=== PATIENT | female | born 1970 | race Hispanic/Latino ===

== ENCOUNTER 2021-05-15 06:16 | Day surgery (SDC) | payer BC ==
[2021-05-11 08:41] VITALS: BP 109/65
[2021-05-11 10:01] LABS: BASOPHILS % (AUTO) 0.7 % (0.0-5.0); EOSINOPHILS % (AUTO) 1.1 % (0.0-8.0); HEMATOCRIT 40.1 % (36-48); LYMPHOCYTES % (AUTO) 35.2 % (21.0-51.0); MEAN CORPUSCULAR HEMOGLOBIN 29.8 pg (27.0-33.0); MEAN CORPUSCULAR HGB CONC 33.4 g/dL (32.0-36.0); MEAN CORPUSCULAR VOLUME 89.3 fL (79-99); MONOCYTES % (AUTO) 7.7 % (3.0-13.0); NEUTROPHILS % (AUTO) 54.8 % (40.0-77.0); PLATELET COUNT (AUTO) 244 K/uL (130-400); RED BLOOD CELL COUNT(AUTO) 4.49 MIL/uL (4.00-5.50); RED CELL DISTRIBUTION WIDTH 13.1 % (11.0-15.5); WHITE BLOOD COUNT (AUTO) 5.6 K/uL (4.8-10.8)
[2021-05-11 10:10] LABS: CREATININE 0.7 mg/dL (0.5-1.5); POTASSIUM 4.5 mmol/L (3.5-5.1)
[~2021-05-15] VITALS: Ht 154.9 cm; Wt 69.0 kg
[2021-05-15] VITALS (14 sets, daily range): BP systolic 99–110; BP diastolic 56–68
[2021-05-15] MEDS: CEFAZOLIN SODIUM 1 GM VIAL IVP SCH ×2 (06:00→08:17)
[~2021-05-15 06:16] MED LIST: AMOX-429 PO; ROSU10TA28 PO
[2021-05-15] MEDS ORDERED: LIDOCAINE PF 100MG/5ML (2%) SYRINGE 5ML ONE (07:51)
[2021-05-15] MEDS ORDERED: PROPOFOL 10 MG/ML 20ML VIAL IV ONE (07:51)
[2021-05-15] MEDS ORDERED: FENTANYL CITRATE PF 50 MCG/1 ML 2ML VIAL ONE (07:51)
[2021-05-15] MEDS ORDERED: BUPIVACAINE/PF 0.25% 30ML VIAL IJ ONE (08:23)
[2021-05-15] MEDS ORDERED: ONDANSETRON 4MG INJ ONE (08:49)
[2021-05-15] MEDS ORDERED: KETOROLAC 30MG VIAL (30MG/ML) ONE (08:50)
[2021-05-15] MEDS ORDERED: ACET1TAB25 PO (08:59)
[2021-05-15] MEDS ORDERED: CEPH500B PO (08:59)
[2021-05-15] MEDS ORDERED: NAPR-1192 PO (08:59)
== END 2021-05-15 10:15 | disposition home or self-care (01) ==
LOC: DAH 06:16
PROVIDERS: ATTEND Orthopaedic Surgery
DX: G56.01 Carpal tunnel syndrome, right upper limb (principal); Z20.822 Contact with and (suspected) exposure to COVID-19; K21.9 Gastro-esophageal reflux disease without esophagitis; E78.5 Hyperlipidemia, unspecified; Z90.710 Acquired absence of both cervix and uterus; Z79.899 Other long term (current) drug therapy
CPT/HCPCS: 36415; 64721; 80048; 85025; 87635; A4215 ×2; A4221; A4222; A4223; A4649; A4663; A4930; A5120; A6223; C9803; J0690; J1885; J2001; J2405; J2704; J3010; J3490

== ENCOUNTER 2021-05-31 06:23 | Day surgery (SDC) | payer BC ==
[2021-05-26 11:51] LABS: BASOPHILS % (AUTO) 0.4 % (0.0-5.0); EOSINOPHILS % (AUTO) 1.6 % (0.0-8.0); HEMATOCRIT 39.8 % (36-48); LYMPHOCYTES % (AUTO) 37.1 % (21.0-51.0); MEAN CORPUSCULAR HEMOGLOBIN 29.7 pg (27.0-33.0); MEAN CORPUSCULAR HGB CONC 33.4 g/dL (32.0-36.0); MEAN CORPUSCULAR VOLUME 88.8 fL (79-99); MONOCYTES % (AUTO) 8.9 % (3.0-13.0); NEUTROPHILS % (AUTO) 51.8 % (40.0-77.0); PLATELET COUNT (AUTO) 235 K/uL (130-400); RED BLOOD CELL COUNT(AUTO) 4.48 MIL/uL (4.00-5.50); RED CELL DISTRIBUTION WIDTH 12.8 % (11.0-15.5); WHITE BLOOD COUNT (AUTO) 5.5 K/uL (4.8-10.8)
[2021-05-26 12:04] LABS: CREATININE 0.6 mg/dL (0.5-1.5); POTASSIUM 3.8 mmol/L (3.5-5.1)
[2021-05-30 13:55] VITALS: BP 114/61
[2021-05-31] VITALS (17 sets, daily range): BP systolic 92–110; BP diastolic 57–71
[~2021-05-31] VITALS: Ht 154.9 cm; Wt 68.5 kg
[~2021-05-31 06:23] MED LIST changes: +ACET1TAB25 PO; -AMOX-429 PO; +SUMA25TA25 PO
[2021-05-31] MEDS ORDERED: CEFAZOLIN SODIUM 1 GM VIAL ONE (06:43)
[2021-05-31] MEDS ORDERED: LACTATED RINGERS 1000ML 1,000 ML IV ONE (06:43)
[2021-05-31] MEDS ORDERED: LORA10TA7 PO (07:07)
[2021-05-31] MEDS: CEFAZOLIN SODIUM 1 GM VIAL IVP ONE ×2 (07:16→08:35)
[2021-05-31] MEDS ORDERED: BUPIVACAINE/PF 0.5% 30ML VIAL ONE (07:20)
[2021-05-31] MEDS ORDERED: PROPOFOL 10 MG/ML 20ML VIAL IV ONE (07:58)
[2021-05-31] MEDS ORDERED: DEXAMETHASONE SOD PHOSPHATE 4 MG/ML 1ML VIAL ONE (07:58)
[2021-05-31] MEDS ORDERED: LIDOCAINE PF 100MG/5ML (2%) SYRINGE 5ML ONE (07:58)
[2021-05-31] MEDS ORDERED: MIDAZOLAM HCL 1 MG/ML 2ML VIAL ONE (07:58)
[2021-05-31] MEDS ORDERED: ONDANSETRON 4MG INJ ONE (07:58)
[2021-05-31] MEDS ORDERED: FENTANYL CITRATE PF 50 MCG/1 ML 2ML VIAL ONE (08:38)
[2021-05-31] MEDS ORDERED: CEPH500B PO (09:47)
== END 2021-05-31 11:20 | disposition home or self-care (01) ==
LOC: DAH 06:23
PROVIDERS: ATTEND Orthopaedic Surgery
DX: G56.02 Carpal tunnel syndrome, left upper limb (principal); Z20.822 Contact with and (suspected) exposure to COVID-19; E78.5 Hyperlipidemia, unspecified; K21.9 Gastro-esophageal reflux disease without esophagitis; G43.909 Migraine, unspecified, not intractable, without status migrainosus; Z90.710 Acquired absence of both cervix and uterus; Z98.890 Other specified postprocedural states; Z79.899 Other long term (current) drug therapy
CPT/HCPCS: 36415; 64721; 80048; 85025; 87635; A4215 ×2; A4221; A4222; A4223; A4649; A4663; A4930 ×2; A5120; A6223; C9803; J0690 ×2; J1100; J2001; J2250; J2405; J2704; J3010; J3490; J7120